=== PATIENT | female | born 1945 | race Caucasian/White ===

== ENCOUNTER 2020-08-06 05:38 | Inpatient (IN) | payer MEDICARE, BC ==
[2020-07-30 13:24] LABS: BASOPHILS # (AUTO) 0.1 X10'3 (0-0.2); BASOPHILS % (AUTO) 1.2 % (0-1); EOSINOPHILS # (AUTO) 0.3 X10'3 (0-0.9); EOSINOPHILS % (AUTO) 3.6 % (0-6); LYMPHOCYTES # (AUTO) 2.8 X10'3 (1.1-4.8); LYMPHOCYTES % (AUTO) 40.1 % (21-51); MEAN CORPUSCULAR HGB CONC 33.6 g/dL (33.0-36.5); MEAN CORPUSCULAR VOLUME 89.2 FL (78-98); MEAN PLATELET VOLUME 8.5 FL (7.4-10.4); MONOCYTES # (AUTO) 0.8 X10'3 (0-0.9); MONOCYTES % (AUTO) 11.2 % (2-12); NEUTROPHILS # (AUTO) 3.1 X10'3 (1.8-7.7); NEUTROPHILS % (AUTO) 43.9 % (42-75); PRE OP HEMATOCRIT 38.3 % (35.0-45.0); PRE OP HEMOGLOBIN 12.9 g/dL (12.0-16.0); PRE OP PLATELET COUNT 308 X10'3 (140-440); RED BLOOD COUNT 4.29 X10'6 (4.20-5.60); RED CELL DISTRIBUTION WIDTH 13.6 % (11.5-14.5)
[2020-07-30 13:36] LABS: PRE OP INR 1.1 INR; PRE OP PROTIME 11.4 SECONDS (9.0-12.0)
[2020-07-30 13:38] LABS: ALBUMIN 3.8 G/DL (3.4-5.0); ALKALINE PHOSPHATASE 121 IU/L (46-116); BLOOD UREA NITROGEN 29 MG/DL (7-18); BUN/CREATININE RATIO 21.8 (6.6-38.0); CHLORIDE 104 MMOL/L (99-107); CREATININE 1.33 MG/DL (0.40-0.90); PRE OP ALT 46 U/L (30-65); PRE OP ANION GAP 7 (8-16); PRE OP AST 53 U/L (10-37); PRE OP BILIRUB, TOTAL 0.8 MG/DL (0.0-1.0); PRE OP GLUCOSE 95 MG/DL (70-104); PRE OP SODIUM 142 MMOL/L (135-145); TOTAL PROTEIN 7.7 G/DL (6.4-8.2); eGFR 39 ML/MIN
[2020-07-30 13:39] LABS: PRE OP POTASSIUM 2.9 MMOL/L (3.4-5.1)
[2020-08-06] VITALS (26 sets, daily range): BP systolic 102–158; BP diastolic 55–102
[~2020-08-06] VITALS: Ht 152.4 cm; Wt 67.4 kg
[~2020-08-06 05:38] MED LIST: ACET-2615 PO; ALBU18HF2 INH; APIX5TAB3 PO; ATOR-2 PO; BENZ-49 PO; BUDE10.22 INH; CHLO25TA10 PO; CYCL-145 PO; DOCUMENT DATE & TIME OF BETA-BLOCKER PO ONE; HYDR-3964 PO; LOSA50TA64 PO; METO-411 PO; MONT10TA26 PO; PROM118S5 PO; famotidine 20mg tablet PO ONE; ringers solution, lacted 1,000 ML IV SCH
[2020-08-06] MEDS ORDERED: HYDROmorphone 1 mg/ml syringe IV PRN (06:00)
[2020-08-06] MEDS ORDERED: ondansetron/PF 4mg/2ml inj IV PRN ×2 (06:00→07:30)
[2020-08-06] MEDS ORDERED: magnesium hydroxide 30ml (MOM) UD suspension PO PRN (06:00)
[2020-08-06] MEDS ORDERED: NORMAL SALINE IV ONE (06:00)
[2020-08-06] MEDS ORDERED: HYDROmorphone inj. 0.5 MG/0.5 ML DISP.SYRIN IV PRN (06:00)
[2020-08-06] MEDS ORDERED: acetaminophen 325mg tablet PO PRN (06:00)
[2020-08-06] MEDS ORDERED: bisacodyl 10mg suppository rectal RC PRN (06:00)
[2020-08-06] MEDS ORDERED: diphenhydrAMINE 25mg capsule PO PRN ×2 (06:00)
[2020-08-06] MEDS ORDERED: vancomycin/NS 1 GM ADD-VANTAGE 250 ML IV ONE (06:00)
[2020-08-06] MEDS ORDERED: TRANEXAMIC ACID IV ONE (06:00)
[2020-08-06] MEDS: potassium cl 20mEq in 1/2 NS 1,000 ML IV SCH ×3 (06:00→22:00)
[2020-08-06] MEDS ORDERED: ceFAZolin 2gm in dextrose, iso 50 ML IV ONE (06:10)
[2020-08-06] MEDS ORDERED: ketorolac trometh. 30mg/ml inj. ONE (06:47)
[2020-08-06] MEDS ORDERED: vancomycin 1,000mg inj ONE (06:47)
[2020-08-06] MEDS: ceFAZolin/D5W- 1GM premix 50 ML IV SCH ×2 (07:18→17:02)
[2020-08-06] MEDS ORDERED: fentaNYL/PF 50MCG/1 ML 2ML syringe ONE ×2 (07:23→08:00)
[2020-08-06] MEDS ORDERED: MIDAZolam 5mg/5ml vial ONE (07:24)
[2020-08-06] MEDS ORDERED: sevoflurane 250ml liquid IH ONE (07:26)
[2020-08-06] MEDS ORDERED: ROPIVAcaine inj 250 MG, CloNIDine/PF inj 80 MCG, epiNEPHrine inj 0.5 MG in normal salin... IV ONE (07:30)
[2020-08-06] MEDS ORDERED: ringers solution, lacted 1,000 ML IV SCH (07:30)
[2020-08-06] MEDS ORDERED: morphine 2 MG/ML inj. syringe IV PRN (07:30)
[2020-08-06] MEDS: apixaban 5mg tablet PO SCH ×2 (08:00→21:22)
[2020-08-06] MEDS: ascorbic acid 500mg tablet PO SCH ×2 (08:00→21:22)
[2020-08-06] MEDS: gabapentin 300mg capsule PO SCH ×3 (08:00→18:18)
[2020-08-06] MEDS: chlorthalidone 25mg tablet PO SCH (08:00)
[2020-08-06] MEDS ORDERED: propofol inj 20 ML IV ONE (08:34)
[2020-08-06] MEDS ORDERED: ondansetron/PF 4mg/2ml inj ONE (08:34)
[2020-08-06] MEDS ORDERED: dexamethasone sod phosphate 4mg/ml inj. ONE (08:34)
[2020-08-06] MEDS ORDERED: LIDOcaine 1%/PF 5ML 10 MG/ML VIAL ONE (08:34)
--- NOTE | 2020-08-06 09:20 | NUR ---
Received from OR via ortho bed, accompanied by Anesthesiologist Bradford and report given by Anesthesiolgist. Right knee with latasha, on-q, leg wrap and cold pack, distal pulses palpable. Will attach On-Q med ball. VS stable. Mask to 10L. 20G right forearm IVF LR at 100cc/hr. SCDs on.
[2020-08-06] MEDS ORDERED: ROPIVAcaine 0.5% (5mg/ml) 30ml vial ONE (09:21)
[2020-08-06] MEDS: HYDROmorphone/PF 0.2 MG/ML SYRINGE IV PRN ×2 (09:45→09:51)
[2020-08-06] MEDS: ROPIVAcaine 0.2%/PF PUMP/bolus 550 ML ADDCANAL SCH (09:47)
[2020-08-06] MEDS: ROPIVAcaine 0.2% (10 MG/5 ML) BOLUS INJECTION ADDCANAL PRN ×2 (09:50→10:39)
[2020-08-06] MEDS ORDERED: morphine 4 MG/ML inj SYRINge IV PRN (09:55)
[2020-08-06] MEDS ORDERED: HYDROmorphone/PF 0.2 MG/ML SYRINGE IV PRN (09:55)
[2020-08-06] MEDS ORDERED: acetaminophen 1,000mg/100ml IV 100 ML IV ONE (10:00)
--- NOTE | 2020-08-06 12:00 | NUR ---
Report called to receiving nurse. Transferred via ortho bed. Belongings sent with patient. Special Issues communicated to receiving nurse CARROL Ortega. Pt much more comfortable, states pain tolerable at 3/10. Call light within reach BLL and chart at bedside.
[2020-08-06 13:16] LABS: ISTAT CREATININE 1.1 mg/dL (0.6-1.1); ISTAT HGB 11.9 g/dl (12.0-16.0); ISTAT IONIZED CALCIUM 1.23 mmol/L (1.03-1.32); ISTAT K 3.1 mmol/L (3.5-5.1); POC BUN/CREATININE RATIO 24.5 (6.6-38.0)
[2020-08-06] MEDS: acetaminophen 1,000mg/100ml IV 100 ML IV SCH ×2 (13:31→22:26)
--- NOTE | 2020-08-06 13:40 | NUR ---
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 He states okay to give. Will relay to floor RN.
[2020-08-06] MEDS: HYDROcodone/acetaminophen 10/325mg tab PO PRN (14:33)
[2020-08-06] MEDS ORDERED: vancomycin/NS 1 GM ADD-VANTAGE 250 ML IV SCH (20:00)
[2020-08-06] MEDS: budesonide 0.5mg/2ml UD nebule IH SCH (21:09)
[2020-08-06] MEDS: albuterol 2.5 MG/3 ML nebule NEB SCH (21:09)
[2020-08-06] MEDS: losartan 50mg tablet PO SCH (21:22)
[2020-08-06] MEDS: montelukast 10mg tablet PO SCH (21:22)
[2020-08-06] MEDS: sennosides 8.6mg tablet PO SCH (21:23)
[2020-08-06] MEDS: metoprolol succinate 25mg (24-HOUR) SR. Tablet PO SCH (21:23)
[2020-08-06] MEDS: atorvastatin 20mg tablet PO SCH (21:24)
[2020-08-06] MEDS: benzonatate 100mg capsule PO SCH (21:28)
[2020-08-07] MEDS: ceFAZolin/D5W- 1GM premix 50 ML IV SCH (00:46)
[2020-08-07 02:00] VITALS: BP 91/53
[2020-08-07] MEDS: acetaminophen 1,000mg/100ml IV 100 ML IV SCH ×2 (02:59→08:00)
[2020-08-07] MEDS: HYDROcodone/acetaminophen 10/325mg tab PO PRN ×4 (03:15→18:59)
[2020-08-07 06:00] VITALS: BP 92/45
[2020-08-07] MEDS: potassium cl 20mEq in 1/2 NS 1,000 ML IV SCH ×3 (06:00→22:15)
[2020-08-07 06:24] LABS: BASOPHILS % (AUTO) 0.5 % (0-1); EOSINOPHILS % (AUTO) 0 % (0-6); HEMATOCRIT 25.3 % (35.0-45.0); HEMOGLOBIN 8.6 g/dl (12.0-16.0); LYMPHOCYTES # (AUTO) 1.2 X10'3 (1.1-4.8); MEAN CORPUSCULAR HEMOGLOBIN 30.3 PG (27.0-31.0); MEAN CORPUSCULAR HGB CONC 34.1 g/dL (33.0-36.5); MEAN CORPUSCULAR VOLUME 88.9 FL (78-98); MEAN PLATELET VOLUME 8.4 FL (7.4-10.4); MONOCYTES # (AUTO) 1.5 X10'3 (0-0.9); MONOCYTES % (AUTO) 17.2 % (2-12); NEUTROPHILS # (AUTO) 5.9 X10'3 (1.8-7.7); NEUTROPHILS % (AUTO) 68.3 % (42-75); PLATELET COUNT 209 X10'3 (140-440); RED BLOOD COUNT 2.84 X10'6 (4.20-5.60); RED CELL DISTRIBUTION WIDTH 13.6 % (11.5-14.5); WHITE BLOOD COUNT 8.6 X10'3 (4.5-11.0)
[2020-08-07 06:35] LABS: ANION GAP 7 (8-16); CHLORIDE 108 MMOL/L (99-107); POTASSIUM 3.8 MMOL/L (3.5-5.1); SODIUM 143 MMOL/L (135-145); TOTAL CARBON DIOXIDE 28.2 MMOL/L (24-32)
--- NOTE | 2020-08-07 06:41 | NUR ---
REPORT GIVEN TO CARROL EDGAR.
[2020-08-07] MEDS: albuterol 2.5 MG/3 ML nebule NEB SCH ×2 (08:00→19:49)
[2020-08-07] MEDS: budesonide 0.5mg/2ml UD nebule IH SCH ×2 (09:00→19:49)
[2020-08-07] MEDS: apixaban 5mg tablet PO SCH ×2 (09:08→21:24)
[2020-08-07] MEDS: chlorthalidone 25mg tablet PO SCH (09:08)
[2020-08-07] MEDS: ascorbic acid 500mg tablet PO SCH ×2 (09:10→21:25)
[2020-08-07] MEDS: gabapentin 300mg capsule PO SCH ×3 (09:11→21:00)
[2020-08-07 10:00] VITALS: BP 112/67
[2020-08-07 10:17] LABS: TOTAL CELLS COUNTED 100
[2020-08-07 10:18] LABS: PLATELET ESTIMATE NORMAL
--- NOTE | 2020-08-07 11:55 | NUR ---
Joint Replacement: Pt seen by RD for written/verbal high protein ed w/ RD contact information provided. Pt is agreeable to ashlee MANCILLA for wound healing; notified. To f/u 08/11 for initial assessment. Addendum: 08/07/20 at [address] Amended: Links added.
[2020-08-07] MEDS: ROPIVAcaine 0.2%/PF PUMP/bolus 550 ML ADDCANAL SCH (12:56)
[2020-08-07 14:00] VITALS: BP 109/52
[2020-08-07] MEDS ORDERED: JUVEN Shake w/Arg/Glut/Ca2+Bmb (Juven 19.3gm) pkt 240ml PO SCH (17:30)
[2020-08-07 18:00] VITALS: BP 106/54
--- NOTE | 2020-08-07 18:30 | NUR ---
Patient in room ORTHO 4012. I have received report from Ariella BRANHAM and had the opportunity to ask questions and assume patient care.
[2020-08-07] MEDS: metoprolol succinate 25mg (24-HOUR) SR. Tablet PO SCH (21:00)
[2020-08-07] MEDS: losartan 50mg tablet PO SCH (21:00)
[2020-08-07] MEDS: atorvastatin 20mg tablet PO SCH (21:23)
[2020-08-07] MEDS: montelukast 10mg tablet PO SCH (21:24)
[2020-08-07] MEDS: sennosides 8.6mg tablet PO SCH (21:24)
[2020-08-07] MEDS: benzonatate 100mg capsule PO SCH (21:26)
[2020-08-07 22:00] VITALS: BP 87/45
[2020-08-08 02:00] VITALS: BP 126/45
[2020-08-08] MEDS: HYDROcodone/acetaminophen 10/325mg tab PO PRN ×3 (02:09→10:13)
[2020-08-08 06:00] VITALS: BP 105/55
--- NOTE | 2020-08-08 06:36 | NUR ---
Problems reprioritized. Patient report given, questions answered & plan of care reviewed with Dinora BRANHAM.
[2020-08-08 06:59] LABS: BASOPHILS # (AUTO) 0.1 X10'3 (0-0.2); BASOPHILS % (AUTO) 0.7 % (0-1); EOSINOPHILS # (AUTO) 0.2 X10'3 (0-0.9); EOSINOPHILS % (AUTO) 1.9 % (0-6); HEMATOCRIT 25.7 % (35.0-45.0); HEMOGLOBIN 8.6 g/dl (12.0-16.0); LYMPHOCYTES # (AUTO) 1.9 X10'3 (1.1-4.8); LYMPHOCYTES % (AUTO) 23.1 % (21-51); MEAN CORPUSCULAR HEMOGLOBIN 30.1 PG (27.0-31.0); MEAN CORPUSCULAR HGB CONC 33.4 g/dL (33.0-36.5); MEAN CORPUSCULAR VOLUME 90.2 FL (78-98); MEAN PLATELET VOLUME 8.7 FL (7.4-10.4); MONOCYTES # (AUTO) 1.4 X10'3 (0-0.9); NEUTROPHILS # (AUTO) 4.6 X10'3 (1.8-7.7); NEUTROPHILS % (AUTO) 57.3 % (42-75); PLATELET COUNT 192 X10'3 (140-440); RED BLOOD COUNT 2.85 X10'6 (4.20-5.60); RED CELL DISTRIBUTION WIDTH 13.9 % (11.5-14.5)
[2020-08-08] MEDS: albuterol 2.5 MG/3 ML nebule NEB SCH (08:33)
[2020-08-08] MEDS: budesonide 0.5mg/2ml UD nebule IH SCH (08:33)
[2020-08-08] MEDS: ascorbic acid 500mg tablet PO SCH (08:53)
[2020-08-08] MEDS: gabapentin 300mg capsule PO SCH ×2 (08:53→08:55)
[2020-08-08] MEDS: apixaban 5mg tablet PO SCH (08:53)
[2020-08-08] MEDS: chlorthalidone 25mg tablet PO SCH (08:53)
[2020-08-08 09:27] LABS: TOTAL CELLS COUNTED 100
[2020-08-08 09:28] LABS: PLATELET ESTIMATE NORMAL
[2020-08-08 10:00] VITALS: BP 100/46
[2020-08-08] MEDS: ROPIVAcaine 0.2%/PF PUMP/bolus 550 ML ADDCANAL SCH (14:07)
== END 2020-08-08 14:45 | disposition home or self-care (01) | DRG 470 ==
LOC: PAS IN 05:38 → EDSTATUS 07:30 → ORTHO 4S 12:08
PROVIDERS: ADMIT Orthopaedic Surgery; ATTEND Orthopaedic Surgery
PROC: 0SRC0J9 Replacement of Right Knee Joint with Synthetic Substitute, Cemented, Open Approach (ICD-10-PCS; principal; 2020-08-06 07:26)
DX: M17.11 Unilateral primary osteoarthritis, right knee (principal); J45.909 Unspecified asthma, uncomplicated; Z96.642 Presence of left artificial hip joint; Z20.828 Contact with and (suspected) exposure to other viral communicable diseases; Z96.652 Presence of left artificial knee joint; Z86.718 Personal history of other venous thrombosis and embolism; Z87.891 Personal history of nicotine dependence; Z90.710 Acquired absence of both cervix and uterus; Z79.899 Other long term (current) drug therapy; D64.89 Other specified anemias
CPT/HCPCS: 36415; 71046; 73560; 80047; 80051; 80053; 82948; 85007; 85025; 85610; 85730; 86885; 86900; 86901; 86920; 86922; 87081; 87635; 94640; 94760; 97110; 97116; 97161; 97530; A4215; A6454; A7000; C1713; C1776; G0378; J0131; J0171; J0690; J0735; J1100; J1170; J1885; J2250; J2270; J2405; J2704; J2795; J3010; J3370; J3480; J7120; J7626